=== PATIENT | female | born 1985 | race Caucasian/White ===

== ENCOUNTER 2017-08-06 14:07 | Outpatient (CLI) | payer BC ==
[2017-08-06 14:36] LABS: #Monocytes 0.8 thou/uL (0.11-0.59); #Neutrophils 13.2 thou/uL (1.40-6.50); %Basophils 0.1 % (0.0-1.0); %Eosinophils 0.2 % (0.0-10.0); %Lymphocytes 6.6 % (21.0-51.0); Hematocrit 33.6 % (36.0-47.0); Mean Platelet Volume 7.1 fL (7.4-10.4); Red Blood Cell (RBC) Count 3.69 mill/uL (4.20-5.40); White Blood Cell (WBC) Count 14.9 thou/uL (4.8-10.8)
[2017-08-06 14:57] LABS: Anion Gap 10 mmol/L (10-20); BUN (Urea Nitrogen) 16 mg/dL (7.0-18.7); Calc. Creatinine Clearance 0 mL/min (70-130); Calcium 9.8 mg/dL (7.8-10.44); Carbon Dioxide 31 mmol/L (22-29); Chloride 102 mmol/L (98-107); Estimated GFR-MDRD 72
== END 2017-08-06 14:08 | disposition home or self-care (01) ==
LOC: LABBT 14:07
PROVIDERS: ATTEND Specialist
DX: Z01.812 Encounter for preprocedural laboratory examination (principal); C79.9 Secondary malignant neoplasm of unspecified site; Z85.43 Personal history of malignant neoplasm of ovary
CPT/HCPCS: 80048; 85025

== ENCOUNTER 2017-09-24 16:02 | Outpatient (CLI) | payer BC ==
[2017-09-24 17:11] LABS: #Basophils 0.1 thou/uL (0.0-0.2); #Lymphocytes 2.7 thou/uL (1.20-3.40); #Monocytes 0.6 thou/uL (0.11-0.59); #Neutrophils 3.5 thou/uL (1.40-6.50); %Basophils 0.8 % (0.0-1.0); %Eosinophils 0.5 % (0.0-10.0); %Lymphocytes 39.2 % (21.0-51.0); %Monocytes 8.8 % (0.0-10.0); Hematocrit 35.1 % (36.0-47.0); Mean Platelet Volume 6.3 fL (7.4-10.4); Red Blood Cell (RBC) Count 3.74 mill/uL (4.20-5.40); White Blood Cell (WBC) Count 6.9 thou/uL (4.8-10.8)
[2017-09-24 17:41] LABS: Anion Gap 12 mmol/L (10-20); BUN (Urea Nitrogen) 14 mg/dL (7.0-18.7); Calc. Creatinine Clearance 0 mL/min (70-130); Calcium 10.4 mg/dL (7.8-10.44); Carbon Dioxide 30 mmol/L (22-29); Chloride 101 mmol/L (98-107); Estimated GFR-MDRD 78
== END 2017-09-24 16:03 | disposition home or self-care (01) ==
LOC: LABBT 16:02
PROVIDERS: ATTEND Specialist
DX: Z01.818 Encounter for other preprocedural examination (principal); C56.9 Malignant neoplasm of unspecified ovary
CPT/HCPCS: 80048; 85025; 93005; 93010

== ENCOUNTER 2017-11-24 01:21 | Inpatient (IN) | payer BC ==
[2017-11-24 02:01] LABS: #Basophils 0.1 thou/uL (0.0-0.2); #Lymphocytes 1.6 thou/uL (1.20-3.40); #Monocytes 0.4 thou/uL (0.11-0.59); #Neutrophils 6.1 thou/uL (1.40-6.50); %Basophils 0.8 % (0.0-1.0); %Eosinophils 0.4 % (0.0-10.0); %Lymphocytes 19.8 % (21.0-51.0); %Monocytes 4.5 % (0.0-10.0); %Neutrophils 74.6 % (42.0-75.0); Hemoglobin 13.4 g/dL (12.0-16.0); Mean Corpuscular HGB CONC 33.8 g/dL (32.0-36.0); Mean Corpuscular Hemoglobin 31.5 pg (27.0-31.0); Mean Corpuscular Volume 93.1 fl (81.0-99.0); Mean Platelet Volume 6.7 fL (7.4-10.4); Platelet Count 311 thou/uL (130-400); RBC Distribution Width 12.8 % (11.5-14.5); Red Blood Cell (RBC) Count 4.25 mill/uL (4.20-5.40); White Blood Cell (WBC) Count 8.2 thou/uL (4.8-10.8)
[2017-11-24 02:21] LABS: ALT (SGPT) 20 U/L (8-55); AST (SGOT) 15 U/L (5-34); Albumin 4.8 g/dL (3.5-5.0); Alkaline Phosphatase 59 U/L (40-150); Anion Gap 17 mmol/L (10-20); BUN (Urea Nitrogen) 18 mg/dL (7.0-18.7); Calc. Creatinine Clearance 0 mL/min (70-130); Calcium 10.5 mg/dL (7.8-10.44); Carbon Dioxide 26 mmol/L (22-29); Chloride 99 mmol/L (98-107); Estimated GFR-MDRD 67; Globulin 3.4 g/dL (2.4-3.5); Glucose 142 mg/dL (70-105); Lipase 63 U/L (8-78); Potassium 3.6 mmol/L (3.5-5.1); Protein, Total 8.2 g/dL (6.0-8.3); Sodium 138 mmol/L (136-145)
[2017-11-24] MEDS ORDERED: Ondansetron HCl/PF 4 MG/2 ML Vial ONE (03:31)
[2017-11-24] MEDS ORDERED: Morphine 4 MG/ML Carpuject SLOW IVP PRN (07:16)
[2017-11-24] MEDS ORDERED: Ondansetron HCl/PF 4 MG/2 ML Vial IVP PRN (07:16)
[2017-11-24 07:41] LABS: Bilirubin Negative (Negative); Blood, Urine Negative (Negative); Clarity CLOUDY (Clear); Glucose, Urine (Dipstick) Negative (Negative); Leukocyte Negative (Negative); Nitrite Negative (Negative); Protein, Urine (Dipstick) 30 mg/dL (Neg-Trace); Urobilinogen 0.2 mg/dL (0.2-1.0); pH, Urine 8.5 (5.0-9.0)
[2017-11-24 07:46] LABS: Bacteria/HPF None Seen HPF (None Seen); Hyaline Casts/LPF 0-3 HYALINE CAST LPF (0-3 Hyaline); Pathc Cast-AUWi Flag 0.13 (0-2.49); Squamous Epithelial 0-3 HPF (0-3); WBC/HPF 0-3 HPF (0-3)
--- NOTE | 2017-11-24 07:54 | RAD ---
CHEST 1 VIEW ABDOMEN 2 VIEWS: Date: 11/24/17 HISTORY: Gastric tube placement. FINDINGS: Cardiac silhouette and pulmonary vasculature are unremarkable. Mediastinum is midline. There is no co nfluent air space consolidation or evidence of free subdiaphragmatic gas. Gas and stool are apparent within the colon. Mildly differential air fluid levels are present within nondilated small bowel loops on the upright view. No evidence of free intraperitoneal gas. Contrast m aterial within the urinary system is consistent with recent CT. Nasogastric tube descends to the stom ach with the proximal side hole just below the level of the left hemidiaphragm. IMPRESSION: 1. Distal small bowel obstruction is as detailed on recent CT exam. 2. Nasogastric tube in place. Advancing the tube approximately 10.0 cm would likely result in better positioning. POS: [facility]
[2017-11-24 07:57] LABS: Specific Gravity, Urine Greater than 1.060 (1.002-1.036)
--- NOTE | 2017-11-24 08:37 | CT ---
PRELIMINARY REPORT/[facility]/EMERGENCY AFTER HOURS PROCEDURE: EXAM: CT Abdomen and Pelvis With Intravenous Contrast EXAM DATE/TIME: Exam ordered 11/24/2017 4:33 AM CLINICAL HISTORY: 32 years old, female; Pain; Abdominal pain; Localized; Right lower quadrant (rlq); Patient HX: Er 5; Abdominal pain (rlq) and vomiting x 2 days. HX of ovarian cancer, states recurrence in 2017. Adal márquez reports that pain started friday morning. Vomiting with everything she eats. Notes that her b owel habits are already irregular but has not has had a bowel movement since friday. TECHNIQUE: Axial computed tomography images of the abdomen and pelvis with intravenous contrast. Coronal reformatted images were created and reviewed. COMPARISON: No relevant prior studies available. FINDINGS: Lower thorax: No acute findings. ABDOMEN: Liver: Hepatic steatosis. No pneumatosis or portal/mesenteric venous gas. Gallbladder and bile ducts: Unremarkable. No calcified stones. No ductal dilation. Pancreas: Unremarkable. No mass. No ductal dilation. Spleen: Unremarkable. No splenomegaly. Adrenals: Unremarkable. No mass. Kidneys and ureters: Unremarkable. No solid mass. No hydronephrosis. Stomach and bowel: There is a high-grade distal small bowel obstruction with transition point in the pelvis related to clustered mesenteric calcifications superior to cause some retraction of the local small bowel loops. This could be due to scar/adhesion related to posttreatment change, could represen t local calcific mesenteric metastatic disease, desmoid tumor, or carcinoid tumor. No perceptible bow el wall thickening; however, mild enteritis of some of the decompressed small bowel loops in the pelv is cannot be excluded on this study. Postsurgical changes of the sigmoid colon. Appendix: Appendix not visualized. PELVIS: Bladder: Unremarkable. No mass. Reproductive: Prior hysterectomy. ABDOMEN and PELVIS: Intraperitoneal space: Trace ascites in the pelvis. No pneumoperitoneum or abscess. Bones/joints: No acute fracture. No dislocation. Soft tissues: Unremarkable. Vasculature: SMV and SMA are patent as far as can be traced. Lymph nodes: Unremarkable. No enlarged lymph nodes. IMPRESSION: 1. There is a high-grade distal small bowel obstruction with transition point in the pelvis related t o clustered mesenteric calcifications superior to cause some retraction of the local small bowel loop s. This could be due to scar/adhesion related to posttreatment change, could represent local calcific me senteric metastatic disease, desmoid tumor, or carcinoid tumor. 2. No perceptible bowel wall thickening; however, mild enteritis of some of the decompressed small juan antonio wel loops in the pelvis cannot be excluded on this study. Thank you for allowing us to participate in the care of your patient. Dictated and Authenticated by: Juanpablo Farley MD 11/24/2017 4:51 AM Central Time ([place]) FINAL REPORT CT ABDOMEN AND PELVIS WITH IV CONTRAST: Date: 11/24/17 FINDINGS/IMPRESSION: I agree with the preliminary report given by Dr. Juanpablo Farley of [facility]. POS: [facility]
[2017-11-24] MEDS: D5 1/2 NS w/20 mEq KCL 1,000 ML IV SCH ×2 (09:50→17:31)
[2017-11-24] MEDS: Pantoprazole 40 MG VIAL IVP SCH (09:53)
[2017-11-24] MEDS ORDERED: ISOVUE-370 76%-LOCM 1 ML ONE (11:07)
--- NOTE | 2017-11-24 11:35 | HP ---
CHIEF COMPLAINT: Nausea, vomiting, abdominal pain. HISTORY OF PRESENT ILLNESS: A 32-year-old female who was diagnosed with ovarian cancer in 2010. She underwent a hysterectomy and bilateral salpingo-oophorectomy in 2010. During that surgery, she also had a sigmoid colon resection. She began chemo, but developed a recurrence in 07/2017. 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 She was started on chemo, but had reaction to it. She is being treated a t [place] at [facility]. This weekend, she developed progressive bloating and vomiting. H er last bowel movement was Friday. Last flatus was on Friday. No fever or chills. PAST MEDICAL HISTORY: Otherwise, healthy. PAST SURGICAL HISTORY: Hysterectomy. She had a MediPort and then the MediPort got infected. She muir d an open exploratory laparotomy in 07/2017 where she had an open biopsy and was found to have carcin omatosis. MEDICATIONS: Include . SOCIAL HISTORY: She is . 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 No tobacco, social alcohol. FAMILY HISTORY: Breast cancer in an aunt and grandmother, but her genetic testing was negative. PHYSICAL EXAMINATION: VITAL SIGNS: Her temperature is 97.6, pulse 99, blood pressure is 111/68. GENERAL: Well-developed, well-nourished female, awake, alert, in no apparent distress. HEENT: Unremarkable. LUNGS: Clear. HEART: Regular rate and rhythm. ABDOMEN: Slightly distended. I do not hear any bowel sounds. Mild diffuse tenderness. EXTREMITIES: Unremarkable. LABORATORY DATA AND X-RAY FINDINGS: White count is 8.2, H&H is 13 and 39, platelet count 311. Elect rolytes show an elevated glucose of 142. CT scan shows a high grade small bowel obstruction in the p francisca near a cluster of calcific changes. ASSESSMENT AND PLAN: Small-bowel obstruction, which may be related to carcinomatosis versus adhesion s. Plan is IV hydration, NG suction. The patient prefers to be transferred to [facility], but a t this time the hospital there is full. We will manage her here until she can be transferred, if nec essary, we will operate here.
--- NOTE | 2017-11-24 11:59 | CON ---
DATE OF CONSULTATION: 11/24/2017 REASON FOR CONSULTATION: Ovarian cancer. HISTORY OF PRESENT ILLNESS: Ms. 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 She has been under the care of Dr. Tyra Mccoy in [place] in 05/2017. She had a relapse on the CT scan with an elevation of her CA-125. She remained under the care of Dr. Tyra Mccoy in August. She was given chemotherapy at our facility consisting of carb oplatin and Avastin. She received 2 doses, and unfortunately, had an allergic reaction. She then ag ain saw Dr. Mccoy, who scanned her and stated that the patient had improvement with just 2 cycles. So, she was placed on Femara, which she has been taking since September. We last saw the patient in 2016. Over the weekend, she began to have abdominal pain and nausea with vomiting. The crampin g worsened, so she presented to the emergency room for evaluation. A CT scan showed a high-grade dis nadine small-bowel obstruction at interstitium point in the pelvis and felt it may be related to scar ti ssue. There was no bowel wall thickening. She was initially to be transferred to [facility]; however, they declined the transfer, so she was admitted to this facility and an NG tube w as placed. She has had no nausea or cramping since that time and is feeling much better. PAST MEDICAL HISTORY: 1. 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 2. BRCA negative. PAST SURGICAL HISTORY: 1. BRIGITTE-BSO, 2010. 2. MediPort removal, 2016. ALLERGIES: No known drug allergies. HOME MEDICATIONS: Femara 2.5 mg daily. FAMILY HISTORY: No family history of ovarian cancer. SOCIAL HISTORY: , has 2 children, lives with her . She is a social drinker. No tobac co or illicit drug use. REVIEW OF SYSTEMS: Constitutional: No fever, chills, night sweats, recent weight loss or gain. Eye s: No blurred or double vision. ENT: No pain, hoarseness, sore throat, or dysphagia. Cardiovascul ar: No chest pain, palpitations, or syncope. Respiratory: No shortness breath, dyspnea on exertion , or orthopnea. Gastrointestinal: Positive for nausea, vomiting, constipation, and abdominal pain. Genitourinary: No dysuria or hematuria. Musculoskeletal: No joint or back pain. Skin: No rash o r pruritus. Hematological: Denies bleeding, bruising, or clotting. Neurologic: No weakness, heada kallie, numbness, tingling, or seizure activity. Psychiatric: No anxiety or depression. PHYSICAL EXAMINATION: VITAL SIGNS: Temperature is 98.5, pulse is 77, respiratory rate 18, BP is 139/93. She is 97% on carmen m air. GENERAL: Well-developed, well-nourished female, in no acute distress. HEENT: Normocephalic, atraumatic. Pupils equal and reactive to light. NECK: Supple. CARDIOVASCULAR: Regular rate and rhythm. LUNGS: Clear. ABDOMEN: Soft, mild tenderness in the right lower quadrant. She has an NG tube in place. Hypoactiv e bowel sounds. EXTREMITIES: No clubbing, cyanosis, or edema. SKIN: No rash. HEMATOLOGIC: No petechiae or purpura. NEUROLOGICAL: Nonfocal. PSYCHIATRIC: The patient is alert and oriented and appropriate. PERTINENT LABORATORY AND X-RAYS: Current WBCs are 8.2, hemoglobin 13.4, hematocrit 39.6, platelet co unt is 311,000, 75% neutrophils, 20% lymphocytes. Sodium is 138, potassium 3.6, chloride 99, CO2 is 26, BUN is 18, creatinine is 0.95, calcium is 10.5, bilirubin is 1.0, AST is 15, ALT is 20, alkaline phosphatase is 59. Serum total protein 8.2, albumin 4.8, globulin 3.9, lipase is 63. CT, per HPI. Acute abdominal series showed the distal small-bowel obstruction. ASSESSMENT: 1. Ovarian cancer, on oral Femara treatment. 2. Small-bowel obstruction. DISCUSSION: Small-bowel obstruction is managed by Dr. Dean and an NG tube has been in place. She i s feeling better. If surgery is needed, we recommend transfer to Dr. Tyra Mccoy in [place]. Hopefully, she will improve over the next few days and it would resolve without surgical interventi on. We will hold the Femara obviously until she can begin to take p.o. She is due to see Dr. Mccoy ne xt month and will follow up as scheduled once she leaves this facility. Thank you for the consult.
[2017-11-24 12:10] VITALS: BMI 25.0
[2017-11-24] MEDS ORDERED: Prevnar 13-Val Conj/PF 0.5 ML SYRINGE IM ONE (12:30)
[2017-11-24] MEDS: Sodium Chloride 0.9% 500 ML IV SCH ×11 (21:10→23:00)
[2017-11-24] MEDS ORDERED: Morphine 5 MG/ML SYRINGE SLOW IVP PRN ×2 (23:15)
[2017-11-25] MEDS: Sodium Chloride 0.9% 500 ML IV SCH ×8 (01:20→12:22)
[2017-11-25] MEDS: D5 1/2 NS w/20 mEq KCL 1,000 ML IV SCH ×3 (01:36→14:58)
[2017-11-25 05:44] LABS: #Eosinphils 0.1 thou/uL (0.0-0.7); #Lymphocytes 1.7 thou/uL (1.20-3.40); #Monocytes 0.5 thou/uL (0.11-0.59); #Neutrophils 5.2 thou/uL (1.40-6.50); %Basophils 0.2 % (0.0-1.0); %Eosinophils 1.5 % (0.0-10.0); %Monocytes 7.1 % (0.0-10.0); %Neutrophils 68.2 % (42.0-75.0); Hemoglobin 11.7 g/dL (12.0-16.0); Mean Corpuscular HGB CONC 33.3 g/dL (32.0-36.0); Mean Corpuscular Hemoglobin 31.8 pg (27.0-31.0); Mean Corpuscular Volume 95.5 fl (81.0-99.0); Mean Platelet Volume 6.8 fL (7.4-10.4); Platelet Count 235 thou/uL (130-400); RBC Distribution Width 12.7 % (11.5-14.5); Red Blood Cell (RBC) Count 3.66 mill/uL (4.20-5.40); White Blood Cell (WBC) Count 7.6 thou/uL (4.8-10.8)
[2017-11-25 05:50] LABS: Anion Gap 11 mmol/L (10-20); BUN (Urea Nitrogen) 8 mg/dL (7.0-18.7); Calc. Creatinine Clearance 104 mL/min (70-130); Calcium 9.1 mg/dL (7.8-10.44); Carbon Dioxide 28 mmol/L (22-29); Chloride 105 mmol/L (98-107); Estimated GFR-MDRD 80; Glucose 125 mg/dL (70-105); Potassium 3.7 mmol/L (3.5-5.1); Sodium 140 mmol/L (136-145)
[2017-11-25] MEDS: Pantoprazole 40 MG VIAL IVP SCH (11:57)
--- NOTE | 2017-11-25 12:16 | RAD ---
SMALL BOWEL FOLLOW THROUGH: Comparison: CT abdomen/pelvis, 11-24-17 History: Partial small bowel obstruction. FINDINGS: A small bowel follow through was performed with Gastrografin. This was given in the patient's indwell ing NG tube. Small bowel loops are normal in appearance. Contrast passed through the small bowel loop s by 45 minutes and was seen in the rectum at 1 hour 15 minutes. IMPRESSION: No evidence of bowel obstruction. POS: [facility]
[2017-11-26] MEDS: D5 1/2 NS w/20 mEq KCL 1,000 ML IV SCH (04:00)
[2017-11-26 08:05] VITALS: BP 113/67; TEMP 98.7
--- NOTE | 2017-11-26 08:25 | DIS ---
DISCHARGE DIAGNOSES: 1. Small-bowel obstruction, resolved. 2. History of metastatic ovarian cancer. PROCEDURES DURING ADMISSION: CT scan of abdomen and pelvis, small bowel follow through, NG suction. HOSPITAL COURSE: The patient was admitted, given NG suction and IV hydration. Initial CT suggested a very high grade obstruction. NG output was initially high, it came down and she passed a small orquidea unt of flatus. A small bowel follow through was then performed that showed no obstruction. She is n ow having bowel movements, passing flatus, tolerating liquids. She is discharged home in good condit ion on her usual medications. She will follow up with her oncologist at [place].
[2017-11-26] MEDS: Pantoprazole 40 MG VIAL IVP SCH (09:25)
== END 2017-11-26 09:30 | disposition home or self-care (01) | DRG 389 ==
LOC: ERS 01:21 → 3SW 06:30
PROVIDERS: ADMIT Surgery; ATTEND Surgery
DX: K56.609 Unspecified intestinal obstruction, unspecified as to partial versus complete obstruction (principal); C56.9 Malignant neoplasm of unspecified ovary; C80.0 Disseminated malignant neoplasm, unspecified
CPT/HCPCS: 36415; 74022; 74177; 74250; 80048; 80053; 81003; 81015; 82550; 83605; 83690; 85025; 96361; 96372; 96374; 96375; 96376; A4216; C9113; J2270; J2405

== ENCOUNTER 2018-10-30 01:43 | Inpatient (IN) | payer BC ==
[2018-10-30 02:09] LABS: #Basophils 0.1 thou/uL (0.0-0.2); #Eosinphils 0.2 thou/uL (0.0-0.7); #Lymphocytes 2.4 thou/uL (1.20-3.40); #Monocytes 0.3 thou/uL (0.11-0.59); #Neutrophils 2.8 thou/uL (1.40-6.50); %Basophils 0.9 % (0.0-1.0); %Eosinophils 2.8 % (0.0-10.0); %Lymphocytes 42.5 % (21.0-51.0); %Monocytes 5.5 % (0.0-10.0); %Neutrophils 48.3 % (42.0-75.0); Hemoglobin 12.6 g/dL (12.0-16.0); Mean Corpuscular HGB CONC 33.5 g/dL (32.0-36.0); Mean Corpuscular Hemoglobin 29.8 pg (27.0-31.0); Mean Corpuscular Volume 88.8 fL (78.0-98.0); Mean Platelet Volume 6.9 fL (7.4-10.4); Platelet Count 236 thou/uL (130-400); RBC Distribution Width 11.1 % (11.5-14.5); Red Blood Cell (RBC) Count 4.24 mill/uL (4.20-5.40); White Blood Cell (WBC) Count 5.7 thou/uL (4.8-10.8)
[2018-10-30 02:24] LABS: Bilirubin Negative (Negative); Blood, Urine Negative (Negative); Clarity CLOUDY (Clear); Glucose, Urine (Dipstick) Negative (Negative); Leukocyte Large (Negative); Nitrite Negative (Negative); Protein, Urine (Dipstick) Negative (Neg-Trace); Specific Gravity, Urine 1.009 (1.002-1.036); Urobilinogen 0.2 mg/dL (0.2-1.0); pH, Urine 6.5 (5.0-9.0)
[2018-10-30 02:27] LABS: Bacteria/HPF None Seen HPF (None Seen); Hyaline Casts/LPF 0-3 HYALINE CAST LPF (0-3 Hyaline); Pathc Cast-AUWi Flag 0.43 (0-2.49); Squamous Epithelial 0-3 HPF (0-3); WBC/HPF 21-50 HPF (0-3)
[2018-10-30 02:31] LABS: ALT (SGPT) 31 U/L (8-55); AST (SGOT) 18 U/L (5-34); Albumin 4.7 g/dL (3.5-5.0); Alkaline Phosphatase 69 U/L (40-150); Anion Gap 15 mmol/L (10-20); BUN (Urea Nitrogen) 12 mg/dL (7.0-18.7); Bilirubin, Total 0.3 mg/dL (0.2-1.2); Calc. Creatinine Clearance 0 mL/min (70-130); Calcium 10.2 mg/dL (7.8-10.44); Carbon Dioxide 29 mmol/L (22-29); Chloride 104 mmol/L (98-107); Estimated GFR-MDRD 73; Glucose 105 mg/dL (70-105); Lipase 84 U/L (8-78); Potassium 3.6 mmol/L (3.5-5.1); Protein, Total 7.7 g/dL (6.0-8.3); Sodium 144 mmol/L (136-145)
[2018-10-30 02:46] LABS: BHCG - Serum Negative (NEGATIVE); Pregs Control Background? CLEAR/WHITE (CLR/WHITE); Pregs Control Bar Appear? YES (CONTROL BAR)
[2018-10-30] MEDS ORDERED: Morphine 4 MG/ML VIAL ONE (02:55)
[2018-10-30] MEDS ORDERED: Ondansetron PF 4 MG/2 ML Vial ONE (02:55)
[2018-10-30] MEDS ORDERED: Sodium Chloride 0.9% 1,000 ML IV SCH (05:45)
[2018-10-30] MEDS ORDERED: Benzocaine 20% Spray 60 ML CAN PO PRN (06:02)
[2018-10-30 06:03] VITALS: BMI 34.8
[2018-10-30] MEDS ORDERED: Morphine 4 MG/ML VIAL SLOW IVP PRN (06:04)
[2018-10-30] MEDS ORDERED: Ondansetron PF 4 MG/2 ML Vial IVP PRN (06:04)
[2018-10-30] MEDS ORDERED: D5 1/2 NS w/20 mEq KCL 1,000 ML IV SCH (06:15)
[2018-10-30 08:06] VITALS: BP 113/79; TEMP 97.6
--- NOTE | 2018-10-30 08:41 | CT ---
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 PT reports n/v. Denies diarrhea. Reports having a hysterectomy due to ovarian cancer TECHNIQUE: Axial computed tomography images of the abdomen and pelvis with intravenous contrast. Coronal reformatted images were created and reviewed. COMPARISON: No relevant prior studies available. FINDINGS: Lower thorax: The visualized portions of the lung bases are normal. ABDOMEN: Liver: There are no focal liver lesions identified. Gallbladder and bile ducts: The gallbladder is normal. There is no evidence of biliary ductal dilatio n. Pancreas: The pancreas appears normal. No ductal dilatation. Spleen: The spleen is normal. Adrenals: The adrenal glands are normal. Kidneys and ureters: The kidneys appear normal. No hydronephrosis. Stomach and bowel: The stomach is normal. The duodenum is unremarkable. Postoperative changes at the rectosigmoid junction with anastomotic suture line. There is dilatation of the small bowel up to 3 cm with abrupt collapse in the pelvis consistent with small bowel obstruction. Appendix: No evidence of appendicitis. PELVIS: Bladder: The bladder is normal. Reproductive: Uterus is surgically absent. ABDOMEN and PELVIS: Intraperitoneal space: Normal. No free air. No significant fluid collection. Bones/joints: No acute fracture. No dislocation. Soft tissues: Unremarkable. Vasculature: Normal. No abdominal aortic aneurysm. Lymph nodes: Normal. No enlarged lymph nodes. IMPRESSION: There is dilatation of the small bowel up to 3 cm with abrupt collapse in the pelvis consistent with small bowel obstruction. Thank you for allowing us to participate in the care of your patient. Dictated and Authenticated by: Trav Soares MD 10/30/2018 4:20 AM Central Time ([place]) FINAL REPORT CT ABDOMEN AND PELVIS WITH IV CONTRAST: DATE: 10/30/2018. TIME: Performed on an emergency basis at 0315 hours. HISTORY: Abdominal pain. COMPARISON: 11/24/2017. FINDINGS: Agree with the preliminary report by Dr. Soares from [facility]. High-grade mid to distal sma ll bowel obstruction. Possible closed-loop obstruction tethered to its base in a location similar to the 11/24/2017 study, although the calcifications are no longer present. Possible interval surgery. Postsurgical changes of the rectum are evident. POS: [facility]
[2018-10-30] MEDS ORDERED: ISOVUE-370 76%-LOCM 1 ML ONE (10:05)
[2018-10-30] MEDS ORDERED: MD-Gastroview 120 ML BOT ONE (10:12)
--- NOTE | 2018-10-30 13:56 | HP ---
CHIEF COMPLAINT: Nausea, vomiting, and abdominal pain. HISTORY: A 33-year-old female, who has a history of ovarian cancer treated in 2010. She has had a hysterectomy, bilateral salpingo-oophorectomy at that time and she also had sigmoid colon resection during that operation. She was treated with chemotherapy, but developed recurrent tumor in 2017 and was found to have carcinomatosis. She had a reaction to the chemo and is being treated at the [facility]. She had a bout of small bowel obstruction a year ago, but since then was doing well, over the last 24 hours, has developed recurrent abdominal pain, nausea and vomiting. She did have a bowel movement in the emergency room last night and reports she is passing some flatus. PAST MEDICAL HISTORY: Ovarian cancer. PAST SURGICAL HISTORY: Hysterectomy, MediPort, and exploratory laparotomy. MEDICATIONS: None. 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 No tobacco. Occasional alcohol. FAMILY HISTORY: Family history of breast cancer, but genetic testing is negative. PHYSICAL EXAMINATION: VITAL SIGNS: Temperature 97.6, pulse 94, and blood pressure 113/79. GENERAL: Well-developed, well-nourished female, in no apparent distress. HEENT: She has an NG tube in place. It is draining only about 100 mL since it was put in. LUNGS: Clear. HEART: Regular rate and rhythm. ABDOMEN: Soft, really no significant distention. No significant tenderness. Well-healed surgical scars. DIAGNOSTIC DATA: CT scan shows a loop of small bowel dilated in the pelvis consistent with partial small bowel obstruction. LABORATORY DATA: White count 5.7, hemoglobin and hematocrit 12 and 37, platelet count 236. Electrolytes are fine. Lipase is little elevated at 84. Urinalysis showed 21 to 50 white cells with positive leukocyte estrace. ASSESSMENT: Partial small-bowel obstruction. PLAN: She is on NG suction, IV hydration, small bowel follow-through with Gastrografin. Job ID: [id number]
--- NOTE | 2018-10-30 14:02 | RAD ---
SMALL BOWEL SERIES: DATE: 10/30/2018. HISTORY: A 33-year-old female with small bowel obstruction. FINDINGS: [employer] view demonstrates normal bowel gas pattern and IV contrast-filled urinary bladder. Following p .o. administration of Gastrografin, the oral contrast material progresses rapidly through nondilated small bowel loops, and fills almost the entire colon by 30 minutes. IMPRESSION: No small bowel obstruction. POS: [facility]
--- NOTE | 2018-10-31 03:35 | DIS ---
DATE OF ADMISSION: 10/30/2018 DATE OF DISCHARGE: 10/30/2018 DISCHARGE DIAGNOSES: 1. Partial small bowel obstruction. 2. Metastatic ovarian cancer. PROCEDURES DURING ADMISSION: IV hydration, NG suction, small-bowel follow-through with Gastrografin. HOSPITAL COURSE: The patient was admitted, given IV fluids and NG suction. Followup KUB showed one loop of dilated bowel in the pelvis. She had a small-bowel follow-through with Gastrografin, which was normal. No obstruction. She has had multiple bowel movements. She is tolerating liquids. She feels fine. She wants to go home. She is discharged to home in good condition on her usual medications. Follow up in 2 weeks. Job ID: [id number]
== END 2018-10-30 15:22 | disposition home or self-care (01) | DRG 390 ==
LOC: ERS 01:43 → SURG A 03:30
PROVIDERS: ADMIT Surgery; ATTEND Surgery
PROC: 0D9670Z Drainage of Stomach with Drainage Device, Via Natural or Artificial Opening (ICD-10-PCS; principal; 2018-10-30)
DX: K56.600 Partial intestinal obstruction, unspecified as to cause (principal); Z85.43 Personal history of malignant neoplasm of ovary; Z90.710 Acquired absence of both cervix and uterus; Z90.49 Acquired absence of other specified parts of digestive tract; Z80.3 Family history of malignant neoplasm of breast
CPT/HCPCS: 36415; 74177; 74250; 80053; 81003; 81015; 83690; 84703; 85025; 96361; 96374; 96375; J2270; J2405